=== PATIENT | female | born 1965 | race Caucasian/White ===

== ENCOUNTER 2017-05-17 09:54 | Observation (INO) | payer BC ==
[2017-05-17] MEDS ORDERED: NS 0.9% 1000 ML* 1,000 ML IV ONE (10:19)
[2017-05-17] MEDS ORDERED: Ondansetron INJ* 2 MG/ML VIAL IV ONE (10:21)
[2017-05-17] MEDS ORDERED: Ondansetron INJ* 2 MG/ML VIAL ONE (10:24)
--- NOTE | 2017-05-17 10:37 | ED ---
Syncope/Near Syncope - HPI Summary HPI Summary: Patient was running in a half marathon today and was at mile 11 of 13.1 when she had a syncopal episode. She does not remember passing out and the last thing she does remember was running and feeling well. Her is with her and reports that although she trained, this was her first half-marathon and it was much warmer today than the weather she trained in. She does not know how she got to the ground or getting to hospital. She denies CP, SOB, TERRELL, N/V/D or fever. She has been well. - History Of Current Complaint Chief Complaint: EDGeneral Time Seen by Provider: 05/17/17 10:06 Hx Obtained From: Patient, Family/Pc Support Specialist Onset/Duration: Sudden Onset Timing: Constant Context: Witnessed Activity At Onset: Exertion Associated Head Trauma: No Aggravating Factor(s): Exertion Alleviating Factor(s): Nothing Associated Signs And Symptoms: AMS - she keeps repeating the same story, Lightheadedness - Allergies/Home Medications Allergies/Adverse Reactions: Allergies Allergy/AdvReac Type Severity Reaction Status Date / Time No Known Allergies Allergy Verified 05/17/17 11:06 PMH/Surg Hx/FS Hx/Imm Hx Previously Healthy: Yes - Cancer History Hx Chemotherapy: No Hx Radiation Therapy: No Infectious Disease History: Reports: Traveled Outside the [place] in Last 30 Days - [place] - Family History Known Family History: Positive: None - Social History Occupation: Employed Full-time Lives: With Family Alcohol Use: Rare Substance Use Type: Reports: None Smoking Status (MU): Never Smoked Tobacco Review of Systems Negative: Fever, Chills Negative: Photophobia, Blurred Vision Negative: Chest Pain Negative: Shortness Of Breath Negative: Abdominal Pain, Vomiting, Diarrhea, Nausea Positive: no symptoms reported Negative: Myalgia Negative: Headache All Other Systems Reviewed And Are Negative: Yes Physical Exam Triage Information Reviewed: Yes Vital Signs Reviewed: Yes Appearance: Positive: No Pain Distress, Well-Nourished, Ill-Appearing Skin: Positive: Warm, Skin Color Reflects Adequate Perfusion, Soft, Diaphoretic Head/Face: Positive: Normal Head/Face Inspection Eyes: Positive: EOMI, ROSLYN, Conjunctiva Clear ENT: Positive: Hearing grossly normal, Pharynx normal, TMs normal Neck: Positive: Supple, Nontender, No Lymphadenopathy Respiratory/Lung Sounds: Positive: Clear to Auscultation, Breath Sounds Present Cardiovascular: Positive: RRR Abdomen Description: Positive: Nontender, Soft. Negative: CVA Tenderness (R), CVA Tenderness (L) Bowel Sounds: Positive: Present Musculoskeletal: Negative: Edema Left, Edema Right Neurological: Positive: Sensory/Motor Intact, Alert, Oriented to Person Place, Time, CN Intact II-III, NV Bundle Intact Distally Psychiatric: Positive: Affect/Mood Appropriate AVPU Assessment: Alert Diagnostics - Laboratory Result Diagrams: 05/17/17 10:40 05/17/17 10:40 Lab Statement: Any lab studies that have been ordered have been reviewed, and results considered in the medical decision making process. - EKG No standard instances Cardiac Rate: NL EKG Rhythm: Sinus Rhythm ST Segment: Normal Ectopy: None Re-Evaluation - Re-Evaluation First Eval Change: Improved - patient has improved and is no longer repeating the same story Course/Dx - Diagnoses Differential Diagnosis/HQI/PQRI: Positive: Cerebral Vascular Accident, Hyperventilation, Hypoglycemia, Hypovolemia, Metabolic Reaction, Myocardial Infarction, Seizure, Vasovagal Episode Provider Diagnoses: Syncope and collapse, Elevated troponin Discharge - Discharge Plan Condition: Stable Disposition: ADMITTED TO [facility]
[2017-05-17 10:59] LABS: Hematocrit 41 % (35-47); Mean Corpuscular HGB Conc 32 g/dl (31-36); Mean Corpuscular Hemoglobin 30 pg (27-31); Mean Corpuscular Volume 93 fL (80-97); Mean Platelet Volume 9 um3 (7.4-10.4); Red Blood Count 4.38 10^6/ul (4.0-5.4); Red Cell Distribution Width 15 % (10.5-15); White Blood Count 12.5 10^3/ul (3.5-10.8)
[2017-05-17 11:13] LABS: Albumin 3.9 g/dL (3.2-5.2); BUN/Creatinine Ratio 15.9 (8-20); Calcium 8.9 mg/dL (8.6-10.3); EGFR Non-African American 40.5 (>60); Globulin 3.3 g/dL (2-4); Magnesium 1.8 mg/dL (1.9-2.7); Potassium 4.1 mmol/L (3.5-5.0); Total Bilirubin 0.9 mg/dL (0.2-1.0); Total Protein 7.2 g/dL (6.4-8.9)
[2017-05-17 11:22] LABS: Troponin I 0.15 ng/mL (<0.04)
[2017-05-17] MEDS ORDERED: Acetaminophen TAB* 325 MG PO PRN (11:33)
[2017-05-17 11:40] LABS: TSH (Thyroid Stimulating Horm) 3.34 mcIU/mL (0.34-5.60)
--- NOTE | 2017-05-17 12:37 | RAD ---
INDICATION: Syncope COMPARISON: None. TECHNIQUE: Contiguous axial sections of the brain were obtained from the skull base to the vertex without contrast. FINDINGS: The ventricles, cisterns and sulci are within normal limits. The garcia-white matter differentiation is adequately maintained and there is no sulcal effacement. No significant focal abnormality or mass effect is present. There is no evidence for intracranial hemorrhage. No significant focal osseous abnormality is present. The visualized portion of the paranasal sinuses and mastoid air cells appear clear. IMPRESSION: Normal CT of the brain.
[2017-05-17] MEDS: NS 0.9% 1000 ML* 1,000 ML IV SCH ×2 (14:00→22:30)
[2017-05-17] MEDS ORDERED: Ondansetron INJ* 2 MG/ML VIAL IV PRN (15:00)
--- NOTE | 2017-05-17 15:47 | HP ---
CC: Dr. Zambrano; Dr. Grubbs * HISTORY AND PHYSICAL: DATE OF ADMISSION: 05/17/17 PRIMARY CARE PROVIDER: Dr. Grubbs CHIEF COMPLAINT: Syncope after a marathon. HISTORY OF PRESENT ILLNESS: Mrs. De Anda is a 51-year-old female who ran her first marathon today and on e out 13, she had a sudden collapse. The patient stated that it was significantly warmer than usually when she would practice for the marathon. It was her first marathon, but she would be running a few miles on a daily basis, and last weekend she ran 11 miles without any problems. The patient stated that she does not recall any prodromal symptoms. She denies any chest pain, shortness of breath. All of a sudden she lost consciousness and she woke up vomiting. She was nauseated and slightly confused when she regained consciousness. She came in to the ED, and was noted to have a slight elevation of troponin at 0.15, as well as acute renal failure. The patient is going to be placed on overnight observation with diagnosis of syncope and elevated troponin. PAST MEDICAL HISTORY: 1. History of left knee surgery in the past. 2. History of . 3. History of exercise-induced asthma. MEDICATIONS: Include: 1. QVAR on a p.r.n. basis, inhaler. 2. Albuterol inhaler on a p.r.n. basis. ALLERGIES: No known drug allergies. FAMILY HISTORY: Positive for father who is in his 80s and has a cardiac pacemaker. No history of recurrent disease was noted. SOCIAL HISTORY: The patient denies tobacco or drug use. She drinks alcohol rarely. 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 She is and her , Sin, is her surrogate. REVIEW OF SYSTEMS: Please see history of present illness. The patient stated that she feels fine now. She denies any chest pain, shortness of breath. She is no longer nauseated. She denies any abdominal pain or headache. All the remaining 14 systems were reviewed with the patient and are otherwise negative. PHYSICAL EXAMINATION GENERAL: A very pleasant 51-year-old female who looks younger than stated age. The patient is in no acute distress. Alert, awake, oriented x3. VITAL SIGNS: Blood pressure of 113/57, heart rate of 87 and regular, respiratory rate 21, oxygen saturation 100% on room air, temperature 97.7. HEENT: Head: Atraumatic, normocephalic. Eyes: Pupils are equal, reactive to light and accommodation. Oropharynx clear. Mucosa moist. NECK: Supple. No JVD. No bruits bilaterally. RESPIRATORY: Clear to auscultation bilaterally. CARDIOVASCULAR: Regular rate and rhythm. No murmur. ABDOMEN: Soft and nontender. Bowel sounds present in all 4 quadrants. EXTREMITIES: There is no edema. Pulses are +2 bilaterally. No clubbing or cyanosis. NEUROLOGIC: Cranial nerves II through XII grossly intact. Motor strength is 5/ 5 bilaterally. LABORATORY DATA/DIAGNOSTIC STUDIES: Sodium of 140, potassium 4.1, chloride 109 , carbon dioxide 21, BUN 22, creatinine 1.38. Liver function tests were unremarkable. Troponin of 0.15. Lactic acid 2.7. CBC: White blood cell count 12.5, hemoglobin 13.0, hematocrit of 41, and platelets of 230. The patient's EKG showed normal sinus rhythm with heart rate of 89 beats per minute with nonspecific ST changes in anterolateral leads. The patient's CT of the brain is pending at the time of dictation. ASSESSMENT AND PLAN: Syncope with subsequent elevation of troponin and acute renal failure in a patient who just completed 11 miles of marathon. At this point, the most likely diagnosis is heat exhaustion, although coronary artery disease and cardiac arrhythmia needs to be on the differential and ruled out. The patient is going to be placed on telemetry monitored bed with followup troponins and transthoracic echocardiogram. I will ask Dr. Zambrano to see the patient in consultation. In regards to the patient's acute renal failure, it is most likely due to dehydration. Intravenous fluids are going to be provided. For DVT prophylaxis, the patient is a low risk and ambulation is going to be encouraged. TIME SPENT: Approximately 60 minutes were spent on admission of this patient, more than half of the time was spent [id number] with the patient doing the interview and physical exam. [id number]/[facility] #: [id number] [facility]
--- NOTE | 2017-05-17 16:03 | CONS ---
CARDIOLOGY CONSULTATION: DATE OF CONSULT: 05/17/17 REASON FOR EVALUATION: Syncope, enzyme elevation. HISTORY OF PRESENT ILLNESS: This is a very pleasant 51-year-old woman who is accompanied by her . She is seen in the ER at the time of admission. She is a healthy 51-year-old woman who ran her first half marathon today. She said she started training over the winter and had been running up to 11 miles in the cool part of the day until this race. Today she ran her first half marathon and decided to try to compete with her friends. She said that it was hotter than usual and she was running longer than usual. She was ahead of her friends and apparently was not drinking enough water during the run. She said that she would stop at the water stations, take a sip and put the rest of it over her body. She remembers running until about mile 10 and then does not remember running the last mile apparently. At some point, she was noted to collapse and party plan sales director were called. She said the last thing she remembers was running and feeling well around mile 10. She did not have any chest pain or palpitation. She remembers being in the ambulance, but does not remember being on the ground. Apparently her said that she was disoriented for about an hour after she arrived in the emergency room. She also vomited apparently in the ambulance and in the emergency room. She has been hydrated and feels fairly well. She was admitted because of the syncopal episode and an elevated troponin. Of note, her vital signs at 10:07 were O2 sat 92%, blood pressure 102 /67, pulse 92. She denies hypertension, diabetes, hyperlipidemia, tobacco use. She has mild asthma and uses QVAR for excised-induced asthma and used it before the race. She denies previous syncope, chest pain, rheumatic fever, murmurs. PAST SURGICAL HISTORY: Includes and ACL to the left knee arthroscopic surgery. MEDICATIONS: As an outpatient include QVAR. Her inpatient medications include sodium chloride 150 cc/hr, acetaminophen p.r.n. ALLERGIES: She denies allergies to drugs. She has seasonal allergies. FAMILY HISTORY: Her mother is alive, has asthma, at 79. Father has a pacemaker , at 81, and exercises otherwise okay. She has a sister who is alive and well. SOCIAL HISTORY: She drinks 1 cup of coffee a day and 1 cup of tea a day. She drinks 1 glass of wine about 4 days a week. She is and has 2 children. 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 REVIEW OF SYSTEMS: Review of systems x10 was negative except as above. Denies seizures or incontinence. PHYSICAL EXAMINATION: She is a well-developed, well-nourished female, no apparent distress. Blood pressure 128/69, pulse of 88. O2 sats are 100% on room air. Atraumatic, normocephalic. Extraocular muscles intact. Sclerae anicteric. No significant JVD. Carotids 2+. Cardiac exam: S1, S2 with a soft 1-2/6 holosystolic murmur at the left lower sternal border, which seemed to increase with inspiration. No change with Valsalva. Chest was clear. No CVAT. Abdomen: Bowel sounds present, nontender. Femoral pulses intact without bruits. Distal pulses intact, no edema. Motor strength 5/5 bilaterally. Deep tendon reflexes 2/4. Alert and oriented x3. Skin: Turgor good. DIAGNOSTIC STUDIES/LAB DATA: White count 12.5, hemoglobin of 13, platelet count of 230. Sodium 140, potassium of 4.1, BUN 22, creatinine elevated at 1.38 , troponin elevated at 0.15. TSH normal. EKG from 10:28 revealed normal sinus rhythm, somewhat prolonged QT and nonspecific inferior ST depressions, poor baseline. Brain CT, normal CT. IMPRESSION: My impression is that Ms. De Anda had an episode of syncope while running a half marathon in extreme heat. Her chemistries suggest electrolyte derangements consistent with dehydration. She also has elevated troponin and lactic acid. I suspect that heat exhaustion and dehydration explain much of this. However, she does have some nonspecific EKG changes. For the time being, I recommend the followin. We will continue hydration as you are doing. 2. We would observe her serial troponins and repeat her EKGs. 3. We will obtain an echocardiogram in the morning. Her murmur raise the possibility of TR and I doubt is pathologic, but we will explain to her and we will check that further. 4. Depending on her clinical course, we may consider evaluation with stress testing at some point. 5. She was advised of the dangers of running and overexertion. She understands that dehydration and heat stroke could be life threatening. Further recommendations will depend on her clinical course. [id number]/[facility] #: [id number] CYNDY
[2017-05-17] MEDS ORDERED: PROCHLORPERAZINE INJ 5 MG/ML 2 ML VIAL IV PRN (17:14)
[2017-05-17 22:35] LABS: Urine Bilirubin Negative (Negative); Urine Glucose Negative (Negative); Urine Nitrite Negative (Negative)
[2017-05-18 08:38] LABS: Hematocrit 35 % (35-47); Hemoglobin 11.3 g/dl (12.0-16.0); Mean Corpuscular HGB Conc 32 g/dl (31-36); Mean Corpuscular Hemoglobin 30 pg (27-31); Mean Corpuscular Volume 94 fL (80-97); Mean Platelet Volume 8 um3 (7.4-10.4); Red Blood Count 3.76 10^6/ul (4.0-5.4); Red Cell Distribution Width 15 % (10.5-15); White Blood Count 9.9 10^3/ul (3.5-10.8)
[2017-05-18] MEDS ORDERED: Aspirin TAB* 325 MG PO SCH (09:00)
[2017-05-18 09:16] LABS: Troponin I 0.05 ng/mL (<0.04)
[2017-05-18 11:32] LABS: Albumin 3.2 g/dL (3.2-5.2); Calcium 8.2 mg/dL (8.6-10.3); EGFR African American 75.5 (>60); EGFR Non-African American 58.7 (>60); Globulin 2.9 g/dL (2-4); Total Bilirubin 1.4 mg/dL (0.2-1.0); Total Protein 6.1 g/dL (6.4-8.9)
[2017-05-18 12:00] VITALS: BP 118/71
[2017-05-18 13:59] LABS: Venous Bicarbonate HCO3 19.9 mmol/L (24-28)
[2017-05-18 14:19] LABS: Albumin 3.2 g/dL (3.2-5.2); BUN/Creatinine Ratio 20.4 (8-20); Calcium 8.6 mg/dL (8.6-10.3); EGFR African American 82.1 (>60); EGFR Non-African American 63.8 (>60); Potassium 3.7 mmol/L (3.5-5.0); Total Bilirubin 1.2 mg/dL (0.2-1.0); Total Protein 6.2 g/dL (6.4-8.9)
--- NOTE | 2017-05-18 15:17 | ECHO ---
Patient: GERARD ROGER [facility] Rec#: [id number] : 1965 Date: 05/18/2017 Age: 51y Height: 157.5 cm / 62.0 in Weight: 49 kg / 108.0 lbs Sex: F BSA: 1.5 Room#: [facility] Admit Date#: 05/17/2017 Type: Inpatient Referring: Elsy Hedrick MD Reading: Jesse Zambrano MD Collection Analyst: Paula Childs RN RDCS CC: Justin Grubbs MD Transthoracic Echocardiogram Indication: Syncope BP: 98/52 HR: 62 Rhythm: NSR Findings History: Exercise induced asthma Technical Comments: The study quality is fair. Completed at 1510. Left Ventricle: The left ventricular chamber size, wall thickness and systolic function are within normal limits. There are no wall motion abnormalities The estimated ejection fraction is 60-65%. Normal left ventricular diastolic filling is observed. Left Atrium: The left atrial chamber size is normal. Right Ventricle: The right ventricular cavity size is normal. The right ventricular global systolic function is normal. Right Atrium: The right atrial cavity size is normal. Aortic Valve: The aortic valve is trileaflet. The aortic valve leaflets are mildly thickened. There is no evidence of aortic regurgitation. There is no evidence of aortic stenosis. Mitral Valve: There is a trace of mitral regurgitation. There is no evidence of mitral stenosis. Tricuspid Valve: The tricuspid valve leaflets are normal. There is mild tricuspid regurgitation. Unable to estimate the right ventricular systolic pressure. Pulmonic Valve: The pulmonic valve appears normal. There is trace to mild pulmonic regurgitation. There is no pulmonic stenosis. Pericardium: There is no significant pericardial effusion. Aorta: There is no dilatation of the ascending aorta. There is no dilatation of the aortic arch. There is no dilation of the aortic root. Pulmonary Artery: The main pulmonary artery appears normal. Venous: The inferior vena cava appears normal in size. There is a greater than 50% respiratory change in the inferior vena cava dimension. Summary: There was not any prior study for comparison. Conclusions The estimated ejection fraction is 60-65%. Normal left ventricular diastolic filling is observed. There is mild tricuspid regurgitation. There is trace to mild pulmonic regurgitation. Measurements Name Value Normal Range RVDdMajor (2D) 3.6 cm (2.2 - 4.4) RAd ISD 4CH 4.4 cm (3.4 - 4.9) RA (A4C)W 3.1 cm (2.9 - 4.6) IVSd (2D) 0.9 cm (0.6 - 1) LVPWd (2D) 0.8 cm (0.6 - 1) LVIDd (2D) 3.7 cm (3.6 - 5.4) LVIDs (2D) 2.4 cm - LV FS (2D) 36 % (25 - 45) Aortic Annulus 1.7 cm (1.4 - 2.6) Ao root diameter (2D) 2.4 cm (2.1 - 3.5) Ascending Ao 2.4 cm (2.1 - 3.4) Aortic arch 2.1 cm (1.8 - 3.4) LA dimension (AP) 2D 2.9 cm (2.3 - 3.8) LAd ISD 4CH 4.1 cm (2.9 - 5.3) LA ISD 4CH W 3.4 cm (2.5 - 4.5) Name Value Normal Range LA ESV SP 4CH (A/L) 31 ml - LA ESV SP 2CH (A/L) 21 ml - LA ESV BP (A/L) 26 ml - LA ESV BP (A/L) index 17.5 ml/m2 - LA ESV SP 4CH (MOD) 30 ml - LA ESV SP 2CH (MOD) 20 ml - Name Value Normal Range MV E-wave Vmax 1.2 m/sec - MV deceleration time 190 msec - MV A-wave Vmax 0.87 m/sec - MV E:A ratio 1.4 ratio - LV septal e' Vmax 0.12 m/sec - LV lateral e' Vmax 0.1 m/sec - LV E:e' septal ratio 10 ratio - LV E:e' lateral ratio 12 ratio - Name Value Normal Range AV Vmax 1.4 m/sec - AV VTI 31.3 cm - AV peak gradient 8 mmHg - AV mean gradient 4.4 mmHg - LVOT Vmax 1.1 m/sec - LVOT VTI 23.2 cm - LVOT peak gradient 5 mmHg - LVOT mean gradient 2.5 mmHg - TORIE Vmax 0.91 m/sec - Name Value Normal Range IVC diameter 2 cm - Name Value Normal Range PV Vmax 0.75 m/sec -
--- NOTE | 2017-05-19 05:48 | DS ---
CC: Dr. Grubbs; Dr. Zambrano * DISCHARGE SUMMARY: DATE OF ADMISSION: 05/17/17 DATE OF DISCHARGE: 05/18/17 PRIMARY CARE PHYSICIAN: Dr. Grubbs. DISCHARGE DIAGNOSIS: Syncope due to heat exposure and excessive exertion during a marathon run. SECONDARY DIAGNOSES: 1. Hyperchloremic, nonanion gap metabolic acidosis, most likely due to intravenous fluid replacement. 2. Acute renal failure due to dehydration and the above heat exposure. 3. Mildly elevated troponin, most likely due to demand ischemia secondary to syncope and heat exposure. 4. Exercise-induced asthma. MEDICATIONS AT DISCHARGE: Unchanged from admission, which includes: Albuterol on a p.r.n. basis. CONSULTATIONS DURING THE HOSPITAL STAY: Included, Dr. Zambrano from Cardiology. LABORATORY DATA AND STUDIES PERFORMED DURING THE HOSPITAL STAY: Included, on , white blood cell count of 9.9, hemoglobin 11.3, hematocrit of 35, and platelets of 161. Venous blood gas on 05/18/17 showed pH of 7.29, PCO2 of 45, PO2 of 22, and bicarb of 19. Sodium was 138, potassium 3.7, chloride 111, carbon dioxide 19, anion gap of 8, BUN 19, creatinine 0.93. Total bilirubin of 1.2. Liver function tests otherwise included AST of 80, ALT of 48, and alkaline phosphatase of 44. Troponin maximum at 0.15 and that was at presentation. Transthoracic echocardiogram: A verbal report received from Dr. Zambrano is grossly unremarkable with mild tricuspid regurgitation. Brain CT obtained on 05/17/17 impression: "Normal CT of the brain." HOSPITALIZATION COURSE: Paco De Anda is a 51-year-old female, who ran her first marathon on 05/17/17 and on the 11th mile, she collapsed. The patient stated that she felt very hot and during the marathon, she was pouring water on her head to keep colder. She was noted to have mildly elevated lactic acid, acute renal failure, and elevation of troponin. She was placed on overnight observation on telemetry monitored bed. She was noted to have no arrhythmias. Due to elevation of troponin, Dr. Zambrano saw the patient in consultation and performed transthoracic echocardiogram that was unremarkable. The troponins peaked at 0.15 at presentation and that was most likely due to heat exhaustion. The patient also was noted to be nauseated after her admission and that was also most likely related to heat exposure. Please note that the patient at some point during the hospital stay, developed hyperchloremic metabolic acidosis that was most likely due to overcorrection with intravenous fluids and that got improved by the time of discharge once her intravenous fluid was discontinued. On discharge, the patient is recommended to follow up with her primary care provider in approximately [address] Zambrano's office is going to call the patient to schedule an outpatient cardiac stress test in the near future. The patient is recommended not to perform strenuous activities and no running until stress test is performed. DIET: At discharge, regular with plenty of fluids and electrolyte replacements. PHYSICAL EXAMINATION: At discharge is unchanged from admission. [id number]/[facility] #: [id number] CYNDY
[2017-05-20 13:13] LABS: Creatine Kinase 207 U/L (38 - 176)
== END 2017-05-18 15:35 | disposition home or self-care (01) ==
LOC: ED 09:54 → MEDTELE 11:31
PROVIDERS: ADMIT Internal Medicine; ATTEND Internal Medicine
DX: R55 Syncope and collapse (principal); R74.8 Abnormal levels of other serum enzymes; N17.9 Acute kidney failure, unspecified; J45.909 Unspecified asthma, uncomplicated; E87.2 Acidosis; Z79.899 Other long term (current) drug therapy; R00.1 Bradycardia, unspecified
CPT/HCPCS: 36415; 70450; 80053; 81003; 82550; 82803; 83605; 83735; 84443; 84484; 85025; 93005; 93306; 96361; 96374; 96375; 96376; 99284; G0378; J0780; J2405